=== PATIENT | male | born 1990 | race Caucasian/White ===

== ENCOUNTER 2022-08-24 10:31 | Emergency (ER) | payer OTHER ==
[2022-08-24] MEDS ORDERED: Zofran 4 MG/2 ML VIAL IV ONE (11:11)
[2022-08-24] MEDS ORDERED: ZOFRAN ODT 4 MG PO ONE (11:11)
[2022-08-24] MEDS ORDERED: Zofran 4 MG/2 ML VIAL ONE (11:13)
--- NOTE | 2022-08-24 11:33 | XRAY ---
Indication: Left head/facial injury. Multiple contiguous axial images obtained through the head without contrast. Comparison: None Normal appearing brain parenchyma, ventricles, and bony calvarium. Moderate left and mild right maxillary sinus mucosal thickening. Mastoid air cells are clear. Impression: Normal CT head without contrast exam. Incidental paranasal sinus disease.
--- NOTE | 2022-08-24 11:37 | XRAY ---
Indication: Left head/facial injury. Multiple contiguous axial images obtained through the facial bones. Sagittal and coronal reformatted images obtained. Comparison: None No acute fracture, suspicious bony lesions, or radiopaque foreign body. Orbits including roof, razo, and floors intact. Visualized cervical spine intact. Moderate left and mild right maxillary sinus mucosal thickening without fluid leveling. Remaining paranasal sinuses and nasal passages are clear. Visualized noncontrasted soft tissues are unremarkable.. Impression: Normal CT facial bones. Incidental paranasal sinus disease.
[2022-08-24 12:15] VITALS: O2SAT 97
[2022-08-24] MEDS ORDERED: EMLA Cream 5 GM TP ONE ×2 (12:22→13:47)
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
[2022-08-24 13:26] VITALS: BP 129/73; PULSE 86
== END 2022-08-24 13:37 | disposition home or self-care (01) ==
LOC: ED 10:31
DX: S01.81XA Laceration without foreign body of other part of head, initial encounter (principal); W20.8XXA Other cause of strike by thrown, projected or falling object, initial encounter; Y99.0 Civilian activity done for income or pay; Z28.310 Unvaccinated for COVID-19
CPT/HCPCS: 36000; 70450; 70486; 96374; 99284; J2405; A9270-GY